=== PATIENT | female | born 1970 | race Caucasian/White ===

== ENCOUNTER 2024-05-11 11:03 | Emergency (ER) | payer SELFPAY ==
[2024-05-11 11:12] VITALS: BMI 17.4
[2024-05-11] MEDS ORDERED: FAMOTIDINE 20 MG/50 ML IVPB 20 MG/50 ML MG IVPB ONE (11:49)
[2024-05-11] MEDS ORDERED: diphenhydrAMINE HCL 25 MG CAPSULE (FP) PO ONE (11:49)
[2024-05-11] MEDS ORDERED: methylPREDNISolone NA SUCC 125 MG/2 ML VIAL ONE (11:49)
[2024-05-11] MEDS: FAMOTIDINE 20 MG/50 ML IVPB 20 MG/50 ML MG IVPB ONE (12:12)
[2024-05-11] MEDS: diphenhydrAMINE HCL 25 MG CAPSULE (FP) PO ONE (12:12)
[2024-05-11] MEDS: methylPREDNISolone NA SUCC 125 MG/2 ML VIAL IVPB ONE (12:12)
[2024-05-11 15:14] VITALS: BP 124/72; PULSE 64; RESP 18; TEMP 98.3
== END 2024-05-11 15:40 | disposition home or self-care (01) ==
LOC: JER 11:03
PROC: 3E033GC Introduction of Other Therapeutic Substance into Peripheral Vein, Percutaneous Approach (ICD-10-PCS; principal; 2024-05-11)
PROC: 3E033GC Introduction of Other Therapeutic Substance into Peripheral Vein, Percutaneous Approach (ICD-10-PCS; 2024-05-11)
DX: L50.0 Allergic urticaria (principal)
CPT/HCPCS: 99284-25